=== PATIENT | female | born 1985 | race Caucasian/White ===

== ENCOUNTER 2019-05-12 22:47 | Emergency (ER) | payer BC, OTHER ==
--- NOTE | 2019-05-12 23:25 | EDM.PDOC ---
ED HPI GENERAL MEDICAL PROBLEM - General Chief Complaint: TRESTLEMAN Problem Stated Complaint: 17 WKS PREG, CONSTIPATED Time Seen by Provider: 05/12/19 22:53 - History of Present Illness INITIAL COMMENTS - FREE TEXT/NARRATIVE: HISTORY AND PHYSICAL: History of present illness: The patient is a 33-year-old female who is a one para 0 and is 17 weeks [address] Last and presents with complaints of no bowel movement for the last 3 days. She says that she has had issues on and off with constipation her whole life and she usually takes aloe and that works but since she's been she has noticed that she has had more issues with constipation and tonight when she was unable to have a bowel movement and felt a lot of pressure she took 2 Colace/ducosate and felt the urge to have a bowel movement and sat on the toilet for long period of time and was unable to have a bowel movement. She says that she is having a little bit of discomfort in her anal area as a result of pushing. She has no abdominal pain no nausea no vomiting no flank pain no urinary complaints and she's had no vaginal bleeding or discharge. She has not felt the baby move yet and her otherwise has been uneventful. She does say that she has tries to eat foods with fiber and push hydration due to her history. She currently feels like the stool is stuck in her rectum and she feels a lot of pressure there. Review of systems: As per history of present illness and below otherwise all systems reviewed and negative. Past medical history: As per history of present illness and as reviewed below otherwise noncontributory. Surgical history: As per history of present illness and as reviewed below otherwise noncontributory. Social history: No reported history of drug or alcohol abuse. Family history: As per history of present illness and as reviewed below otherwise noncontributory. Physical exam: General: Well-developed well-nourished female who is nontoxic and moves easily in the ED without distress. Vital signs are noted by me HEENT: Atraumatic, normocephalic, negative for conjunctival pallor or scleral icterus, mucous membranes moist, throat clear, neck supple, nontender, trachea midline. Lungs: Clear to auscultation, breath sounds equal bilaterally, chest nontender. Heart: S1S2, regular rate and rhythm no overt murmurs Abdomen: Soft, nondistended, nontender. Bowel sounds are hypoactive. Uterus is gravid and appreciated just below the umbilicus and nontender. Negative for masses or hepatosplenomegaly. Negative for costovertebral tenderness. Pelvis: Stable nontender. Genitourinary: Deferred. Rectal: There is some erythema and some slight induration seen at the right lateral aspect of the anus but no gross lesions or soft tissue swelling. Tone and squeeze are normal. There is hard stool appreciated high in the vault. Extremities: Atraumatic, negative for cords or calf pain. Neurovascular unremarkable. Neuro: Awake, alert, oriented. Cranial nerves II through XII unremarkable. Cerebellum unremarkable. Motor and sensory unremarkable throughout. Exam nonfocal. Diagnostics: UA with reflex was ordered but patient did not produce a sample so I will cancel heart tones were 142 per nursing Therapeutics: Enema After my exam I did tell the patient that the stool is very hard and high in the vault and that we can try an enema but it may or may not be successful. She would like to go ahead and try this and if it does not produce decent stool output she will be open to taking something from above to stimulate bowel movement. Patient said that she passed a decent amount of stool here and would like to go home. Impression: Constipation, history of same, second trimester stable Definitive disposition and diagnosis as appropriate pending reevaluation and review of above. rectal pain Pain Score (Numeric/FACES): 5 - Related Data Allergies Allergy/AdvReac Type Severity Reaction Status Date / Time No Known Allergies Allergy Verified 05/12/19 23:02 Home Meds: Home Meds Aspirin [Ecotrin EC] 81 mg PO DAILY 05/12/19 [History] Docusate Calcium 240 mg PO ASDIRECTED PRN 05/12/19 [History] [id number]/Iron Fumarate/FA/DSS [ 19 Tablet] 1 tab PO DAILY 05/12/19 [ History] Past Medical History Gastrointestinal History: Reports: Irritable Bowel Syndrome - Infectious Disease History Infectious Disease History: Reports: Chicken Pox Social & Family History - Family History Family Medical History: Noncontributory - Tobacco Use Smoking Status *Q: Never Smoker Second Hand Smoke Exposure: No - Caffeine Use Caffeine Use: Reports: None - Recreational Drug Use Recreational Drug Use: No ED ROS GENERAL - Review of Systems Review Of Systems: ROS reveals no pertinent complaints other than HPI. ED EXAM, GENERAL - Physical Exam Exam: See Below (See dictation) Course - Vital Signs Last Recorded V/S: Last Vital Signs Temp 35.7 C 05/12/19 22:57 Pulse 91 05/12/19 22:57 Resp 17 05/12/19 22:57 BP 117/78 05/12/19 22:57 Pulse Ox 98 05/12/19 22:57 - Orders/Labs/Meds Orders: Active Orders 24 hr Category Date Time Status Communication Order [RC] STAT Care 05/12/19 22:50 Active Enema [RC] ASDIRECTED Care 05/12/19 23:18 Active UA RFX FERNANDO AND CULT IF INDIC [URIN] Stat Lab 05/12/19 22:50 Stop Req Departure - Departure Time of Disposition: 00:00 Disposition: Home, Self-Care 01 Condition: Good Clinical Impression: Second trimester Constipation Qualifiers: Constipation type: unspecified constipation type Qualified Code(s): K59.00 - Constipation, unspecified - Discharge Information Referrals: PCP,None [Primary Care Provider] - Forms: ED Department Discharge Additional Instructions: The following information is given to patients seen in the emergency department who are being discharged to home. This information is to outline your options for follow-up care. We provide all patients seen in our emergency department with a follow-up referral. The need for follow-up, as well as the timing and circumstances, are variable depending upon the specifics of your emergency department visit. If you don't have a primary care physician on staff, we will provide you with a referral. We always advise you to contact your personal physician following an emergency department visit to inform them of the circumstance of the visit and for follow-up with them and/or the need for any referrals to a consulting specialist. The emergency department will also refer you to a specialist when appropriate. This referral assures that you have the opportunity for followup care with a specialist. All of these measure are taken in an effort to provide you with optimal care, which includes your followup. Under all circumstances we always encourage you to contact your private physician who remains a resource for coordinating your care. When calling for followup care, please make the office aware that this follow-up is from your recent emergency room visit. If for any reason you are refused follow-up, please contact the [facility] emergency department at and ask to speak to the emergency department charge nurse. [place] [id number] [place] [address] [phone] Increase fiber and fluids in your diet and avoid caffeinated products. Please discuss with your OB M.D. taking Colace on a daily basis to keep your stools softer. You may also consider a probiotic [id number]. Return to ER as needed and as discussed - My Orders Last 24 Hours: My Active Orders 05/12/19 22:50 Communication Order [RC] STAT UA RFX FERNANDO AND CULT IF INDIC [URIN] Stat 05/12/19 23:18 Enema [RC] ASDIRECTED - Assessment/Plan Last 24 Hours: My Active Orders 05/12/19 22:50 Communication Order [RC] STAT UA RFX FERNANDO AND CULT IF INDIC [URIN] Stat 05/12/19 23:18 Enema [RC] ASDIRECTED
== END 2019-05-13 00:10 | disposition home or self-care (01) ==
LOC: MW.ED 22:47
DX: O99.612 Diseases of the digestive system complicating pregnancy, second trimester (principal); K59.00 Constipation, unspecified; Z3A.17 17 weeks gestation of pregnancy; Z79.82 Long term (current) use of aspirin
CPT/HCPCS: 99283

== ENCOUNTER 2019-10-29 12:40 | Inpatient (IN) | payer BC ==
[2019-10-29] MEDS ORDERED: Sodium Chloride 0.9% 2.5 ML Syringe FLUSH PRN (20:20)
[2019-10-29] MEDS ORDERED: Water For Irrigation,Sterile 1,000 ML Container IRR PRN (20:20)
[2019-10-29] MEDS ORDERED: Sodium Chloride 0.9% 10 ML Syringe FLUSH PRN (20:20)
[2019-10-29] MEDS ORDERED: Methylergonovine 0.2 MG/1 ML Amp IM PRN (20:20)
[2019-10-29] MEDS ORDERED: Misoprostol 200 MCG Tab PO PRN (20:20)
[2019-10-29] MEDS ORDERED: Carboprost Tromethamine 250 MCG/1 ML Amp IM PRN (20:20)
[2019-10-29] MEDS ORDERED: Nalbuphine 10 MG/1 ML Vial IVPUSH PRN (20:20)
[2019-10-29] MEDS ORDERED: Sodium Chloride 0.9% 10 ML SDV IV PRN (20:20)
[2019-10-29] MEDS ORDERED: Lidocaine 1% 50 ML MDV INJECT PRN (20:20)
[2019-10-29] MEDS ORDERED: Misoprostol 25 MCG (1/4 of 100 MCG) Tab VAG PRN (20:20)
[2019-10-29] MEDS ORDERED: Terbutaline 1 MG/ML SDV SUBCUT PRN (20:20)
[2019-10-29] MEDS ORDERED: Butorphanol 1 MG/ML SDV IVPUSH PRN (20:20)
[2019-10-29] MEDS ORDERED: Tranexamic Acid 1,000 MG in Sodium Chloride 0.9% 100 ML IV PRN (20:20)
[2019-10-29] MEDS ORDERED: Oxytocin/0.9 % Sodium Chloride 30 UNIT/500 ML BAG IV SCH ×2 (20:30)
[2019-10-30] MEDS ORDERED: fentaNYL 100 MCG/2 ML SDV ONE (04:54)
[2019-10-30] MEDS ORDERED: Ropivacaine HCl/PF 100 ML ONE (04:54)
[2019-10-30] MEDS: Lactated Ringers 1,000 ML IV SCH ×2 (05:20)
--- NOTE | 2019-10-30 05:43 | PCM.PREANE ---
Preanesthetic Assessment - Anesthesia/Transfusion/Family Hx Anesthesia History: Prior Anesthesia Without Reaction Transfusion History: No Prior Transfusion(s) - Physical Assessment NPO Status Date: 10/30/19 NPO Status Time: 00:05 Height: 1.63 m Weight: 96.162 kg ASA Class: 1 - Lab Values: Laboratory Last Values WBC 13.14 K/uL (4.0-11.0) H 10/29/19 21:30 RBC 4.08 M/uL (4.30-5.90) L 10/29/19 21:30 Hgb 12.5 g/dL (12.0-16.0) 10/29/19 21:30 Hct 37.4 % (36.0-46.0) 10/29/19 21:30 MCV 91.7 fL (80.0-98.0) 10/29/19 21:30 MCH 30.6 pg (27.0-32.0) 10/29/19 21: MCHC 33.4 g/dL (31.0-37.0) 10/29/19 21:30 RDW Std Deviation 48.6 fl (28.0-62.0) 10/29/19 21:30 RDW Coeff of Latanya 14 % (11.0-15.0) 10/29/19 21:30 Plt Count 229 K/uL (150-400) 10/29/19 21:30 MPV 11.70 fL (7.40-12.00) 10/29/19 21:30 Nucleated RBC % 0.0 /100WBC 10/29/19 21:30 Nucleated RBCs # 0 K/uL 10/29/19 21:30 Blood Type A POSITIVE 10/29/19 21:30 Antibody Screen NEGATIVE 10/29/19 21:30 - Allergies Allergies/Adverse Reactions: Allergies Allergy/AdvReac Type Severity Reaction Status Date / Time No Known Allergies Allergy Verified 05/12/19 23:02 - Acknowledgements Anesthesia Type Planned: Epidural Pt an Appropriate Candidate for the Planned Anesthesia: Yes Alternatives and Risks of Anesthesia Discussed w Pt/Guardian: Yes Pt/Guardian Understands and Agrees with Anesthesia Plan: Yes PreAnesthesia Questionnaire HEENT History: Reports: Impaired Vision Gastrointestinal History: Reports: Irritable Bowel Syndrome - Infectious Disease History Infectious Disease History: Reports: Chicken Pox - Past Surgical History HEENT Surgical History: Reports: Oral Surgery - SUBSTANCE USE Smoking Status *Q: Never Smoker Tobacco Use Within Last Twelve Months: No Second Hand Smoke Exposure: No - HOME MEDS Home Medications: Home Meds Aspirin [Ecotrin EC] 81 mg PO DAILY 05/12/19 [History] Docusate Calcium 240 mg PO ASDIRECTED PRN 05/12/19 [History] Prenat 115/Iron Fum/Folic/Dss [ 19 Tablet] 1 tab PO DAILY 05/12/19 [ History] - CURRENT (IN HOUSE) MEDS Current Meds: Current Medications Butorphanol Tartrate (Stadol) 1 mg IVPUSH Q1H PRN PRN Reason: Pain Carboprost Tromethamine (Hemabate Ds) 250 mcg IM ASDIRECTED PRN PRN Reason: Post Hemorrhage Lactated Ringer's (Ringers, Lactated) 1,000 mls @ 150 mls/hr IV ASDIRECTED PAPA Last Admin: 10/30/19 05:20 Dose: 150 mls/hr Oxytocin/Sodium Chloride (Oxytocin 30 Unit/500 Ml-Ns) 30 unit in 500 mls @ 250 mls/hr IV TITRATE PAPA Oxytocin/Sodium Chloride (Oxytocin 30 Unit/500 Ml-Ns) 30 unit in 500 mls @ 2 mls/hr IV TITRATE PAPA; Protocol Tranexamic Acid 1,000 mg/ (Sodium Chloride) 110 mls @ 660 mls/hr IV ONETIME PRN PRN Reason: Bleeding Lidocaine HCl (Xylocaine 1%) 50 ml INJECT ONETIME PRN PRN Reason: Laceration repair Methylergonovine Maleate (Methergine) 0.2 mg IM ASDIRECTED PRN PRN Reason: Post Hemorrhage Misoprostol (Cytotec) 200 mcg PO ONETIME PRN PRN Reason: Post Hemorrhage Misoprostol (Cytotec) 25 mcg VAG Q4H PRN PRN Reason: Cervical Ripening Last Admin: 10/29/19 21:41 Dose: 25 mcg Nalbuphine HCl (Nubain) 10 mg IVPUSH Q1H PRN PRN Reason: Pain (severe 7-10) Sodium Chloride (Saline Flush) 10 ml FLUSH ASDIRECTED PRN PRN Reason: Keep Vein Open Sodium Chloride (Saline Flush) 2.5 ml FLUSH ASDIRECTED PRN PRN Reason: Keep Vein Open Sodium Chloride (Normal Saline) 10 ml IV ASDIRECTED PRN PRN Reason: IV Use Sterile Water (Sterile Water For Irrigation) 1,000 ml IRR ASDIRECTED PRN PRN Reason: delivery Terbutaline Sulfate (Brethine) 0.25 mg SUBCUT ASDIRECTED PRN PRN Reason: Tacysystole Last Admin: 10/30/19 04:40 Dose: 0.25 mg Discontinued Medications Fentanyl (Sublimaze) Confirm Administered Dose 100 mcg .ROUTE .STK-MED ONE Stop: 10/30/19 04:55 Ropivacaine (Naropin 0.2%) Confirm Administered Dose 100 mls @ as directed .ROUTE .STK-MED ONE Stop: 10/30/19 04:55
--- NOTE | 2019-10-30 05:47 | PCM.PRNOTE ---
- Free Text/Narrative Note: Anes NOte Patient requests epidural for L&D. Sitting position, level L3-L4 midline approach. Sterile technique, chloraprep scrub to lumbar area. Sterile fenestrated drape applied. Epidural space achieved second attempt using SAEID technique. SAEID at 4 cm. Cath threaded 5 cm with ease. Cath secured at skin at 11 cm using sterile clear adhesive dressing. 0457 test 3 cc 1.5% lido with epi negative. 0500 Load 10 cc 0.2% ropivicaine with 1 mcg cc fentanyl in slow divided doses. 0505 PUmps start wtih 90 cc same solution. Rate is 8 cc hr with 6 cc q 20 min prn bolus. 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
[2019-10-30] MEDS ORDERED: Acetaminophen 500 MG Tab PO PRN ×2 (13:36)
[2019-10-30] MEDS ORDERED: Bisacodyl 10 MG Supp RECTAL PRN (13:36)
[2019-10-30] MEDS ORDERED: Lanolin 100% Cream 7 GM Tube TOP PRN (13:36)
[2019-10-30] MEDS ORDERED: Witch Hazel Medicated Pads 40/Jar TOP PRN (13:36)
[2019-10-30] MEDS ORDERED: oxyCODONE 5 MG Tab PO PRN (13:36)
[2019-10-30] MEDS ORDERED: Ibuprofen 400 MG Tab PO PRN (13:36)
[2019-10-30] MEDS ORDERED: Ibuprofen 800 MG Tab PO PRN (13:36)
[2019-10-30] MEDS: Benzocaine/Menthol 20%-0.5% Spray 78 GM Cannister TOP PRN (17:16)
[2019-10-30] MEDS ORDERED: Docusate Sodium 100 MG Cap PO SCH (21:00)
--- NOTE | 2019-10-30 21:19 | OR ---
SURGEON: Santos Last MD DATE OF PROCEDURE: 10/30/2019 INDICATION: A 33-year-old, G1, P0, at 41 weeks and 4 days, admitted for induction of labor for late term . The patient had uncomplicated , is GBS negative. After receiving one dose of Cytotec, she began to have tachysystole and recurrent variable and late decelerations that did not respond to repositioning. She received a dose of terbutaline, was ruptured and IUPC placed and started on amnioinfusion. The heart rate did recover to Cat 1, and she continued to progress with regular contractions. She progressed to fully dilated and began pushing with contractions. PREOPERATIVE DIAGNOSIS: Broderick intrauterine at 41 weeks and 4 days. POSTOPERATIVE DIAGNOSIS: Broderick intrauterine at 41 weeks and 4 days. PROCEDURE PERFORMED: Normal spontaneous vaginal delivery, repair of second-degree laceration. ANESTHESIA: Epidural. ESTIMATED BLOOD LOSS: 350 mL. FINDINGS Viable male infant, of 8 and 9, Weight of 9lb 1oz Tight nuchal cord x1 DESCRIPTION OF PROCEDURE: The patient pushed with contractions for approximately 25 minutes. There were early decelerations with contractions to the 90s with good recovery. The head delivered in occiput anterior position, restituted ROT. Anterior shoulder delivered easily. Tight nuchal cord was noted. The posterior shoulder and remaining body delivered easily. The nuchal cord was reduced after delivery. The baby was placed on maternal chest and evaluated by awaiting nursery staff. The baby was pink, crying, and moving all extremities after delivery. The umbilical cord was clamped and cut after 60 seconds and no longer pulsating. The umbilical cord gases were obtained. The placenta was removed with gentle traction on the umbilical cord. Placenta was found to be intact with 3-vessel cord. Perineum was examined, and she had a second degree laceration that extended deep into the vagina. 2-0 and 3-0 Vicryl suture was used to repair the second-degree laceration in usual fashion. Hemostasis was confirmed after repair. The uterus was firm and at the umbilicus. Bleeding was minimal. The patient tolerated the procedure well and was given care instructions. JAYDE / TRUDY /[id number] [facility]ITAL CENTERMica
--- NOTE | 2019-10-31 09:58 | PCM.PNPP ---
- General Info Date of Service: 10/31/19 Functional Status: Reports: Pain Controlled, Tolerating Diet, Ambulating, Urinating - Review of Systems General: Reports: No Symptoms HEENT: Reports: No Symptoms Pulmonary: Reports: No Symptoms Cardiovascular: Reports: No Symptoms Gastrointestinal: Reports: No Symptoms Genitourinary: Reports: No Symptoms Musculoskeletal: Reports: No Symptoms Skin: Reports: No Symptoms Neurological: Reports: No Symptoms Psychiatric: Reports: No Symptoms - Patient Data Vital Signs - Most Recent: Last Vital Signs Temp 36.2 C 10/31/19 08:00 Pulse 83 10/31/19 08:00 Resp 16 10/31/19 08:00 BP 117/74 10/31/19 08:00 Pulse Ox 98 10/31/19 08:00 Weight - Most Recent: 212 lb Lab Results - Last 24 Hours: Laboratory Results - last 24 hr 10/31/19 Range/Units 06:10 Hgb 11.2 L (12.0-16.0) g/dL Hct 34.1 L (36.0-46.0) % Med Orders - Current: Current Medications Acetaminophen (Tylenol Extra Strength) 500 mg PO Q4H PRN PRN Reason: Pain Acetaminophen (Tylenol Extra Strength) 1,000 mg PO Q4H PRN PRN Reason: Pain Benzocaine/Menthol (Dermoplast Pain Relief 20%-0.5% Tillar) 78 gm TOP ASDIRECTED PRN PRN Reason: Perineal Comfort Measure Last Admin: 10/30/19 17:16 Dose: 1 canister Bisacodyl (Dulcolax) 10 mg RECTAL ONETIME PRN PRN Reason: Constipation Butorphanol Tartrate (Stadol) 1 mg IVPUSH Q1H PRN PRN Reason: Pain Carboprost Tromethamine (Hemabate Ds) 250 mcg IM ASDIRECTED PRN PRN Reason: Post Hemorrhage Docusate Sodium (Colace) 100 mg PO BID [facility] Last Admin: 10/31/19 07:59 Dose: 100 mg Emollient Ointment (Lansinoh Hpa) 0 gm TOP ASDIRECTED PRN PRN Reason: Sore Nipples Last Admin: 10/31/19 07:58 Dose: 1 tube Lactated Ringer's (Ringers, Lactated) 1,000 mls @ 150 mls/hr IV ASDIRECTED [facility] Last Admin: 10/30/19 05:20 Dose: 150 mls/hr Oxytocin/Sodium Chloride (Oxytocin 30 Unit/500 Ml-Ns) 30 unit in 500 mls @ 250 mls/hr IV TITRATE PAPA Oxytocin/Sodium Chloride (Oxytocin 30 Unit/500 Ml-Ns) 30 unit in 500 mls @ 2 mls/hr IV TITRATE PAPA; Protocol Last Titration: 10/30/19 12:42 Dose: 500 munits/min, 500 mls/hr Tranexamic Acid 1,000 mg/ (Sodium Chloride) 110 mls @ 660 mls/hr IV ONETIME PRN PRN Reason: Bleeding Ibuprofen (Motrin) 400 mg PO Q4H PRN PRN Reason: Pain Ibuprofen (Motrin) 800 mg PO Q6H PRN PRN Reason: Pain Last Admin: 10/30/19 17:14 Dose: 800 mg Lidocaine HCl (Xylocaine 1%) 50 ml INJECT ONETIME PRN PRN Reason: Laceration repair Methylergonovine Maleate (Methergine) 0.2 mg IM ASDIRECTED PRN PRN Reason: Post Hemorrhage Misoprostol (Cytotec) 200 mcg PO ONETIME PRN PRN Reason: Post Hemorrhage Misoprostol (Cytotec) 25 mcg VAG Q4H PRN PRN Reason: Cervical Ripening Last Admin: 10/29/19 21:41 Dose: 25 mcg Nalbuphine HCl (Nubain) 10 mg IVPUSH Q1H PRN PRN Reason: Pain (severe 7-10) Oxycodone HCl (Oxycodone) 5 mg PO Q2H PRN PRN Reason: Pain Sodium Chloride (Saline Flush) 10 ml FLUSH ASDIRECTED PRN PRN Reason: Keep Vein Open Sodium Chloride (Saline Flush) 2.5 ml FLUSH ASDIRECTED PRN PRN Reason: Keep Vein Open Sodium Chloride (Normal Saline) 10 ml IV ASDIRECTED PRN PRN Reason: IV Use Sterile Water (Sterile Water For Irrigation) 1,000 ml IRR ASDIRECTED PRN PRN Reason: delivery Terbutaline Sulfate (Brethine) 0.25 mg SUBCUT ASDIRECTED PRN PRN Reason: Tacysystole Last Admin: 10/30/19 04:40 Dose: 0.25 mg Witch Martha (Tucks) 1 pad TOP ASDIRECTED PRN PRN Reason: comfort care Last Admin: 10/30/19 17:16 Dose: 1 container Discontinued Medications Fentanyl (Sublimaze) Confirm Administered Dose 100 mcg .ROUTE .STK-MED ONE Stop: 10/30/19 04:55 Ropivacaine (Naropin 0.2%) Confirm Administered Dose 100 mls @ as directed .ROUTE .STK-MED ONE Stop: 10/30/19 04:55 - Infant Interaction Infant Disposition, : Harper in Room with Family Interaction: Holding Infant Feeding: Breastfed ; Nursed Well Support Person: - Recovery Exam Fundal Tone: Firm Fundal Level: At Umbilicus Fundal Placement: Midline Lochia Amount: Scant Lochia Color: Rubra/Red Perineum Description: Edematous Bladder Status: Voiding - Exam General: Alert, Oriented, Cooperative, Sedated HEENT: Pupils Equal, Pupils Reactive Neck: Supple, Trachea Midline, No JVD Lungs: Normal Respiratory Effort GI/Abdominal Exam: Soft, Non-Tender, No Distention Extremities: Normal Inspection, Normal Range of Motion, Non-Tender, No Pedal Edema Skin: Warm, Dry, Intact Wound/Incisions: Healing Well Neurological: No New Focal Deficit Psy/Mental Status: Alert, Normal Affect, Normal Mood - Problem List Review Problem List Initiated/Reviewed/Updated: Yes - My Orders Last 24 Hours: My Active Orders 10/30/19 13:36 Patient Status [ADT] Routine May Shower [RC] ASDIRECTED Up ad Zehra [RC] ASDIRECTED Acetaminophen [Tylenol Extra Strength] 1,000 mg PO Q4H PRN Acetaminophen [Tylenol Extra Strength] 500 mg PO Q4H PRN Benzocaine/Menthol [Dermoplast Pain Relief 20%-0.5% Tillar] 78 gm TOP ASDIRECTED PRN Ibuprofen [Motrin] 400 mg PO Q4H PRN Ibuprofen [Motrin] 800 mg PO Q6H PRN Lanolin [Lansinoh HPA] See Dose Instructions TOP ASDIRECTED PRN bisacodyL [Dulcolax] 10 mg RECTAL ONETIME PRN oxyCODONE 5 mg PO Q2H PRN witch Martha [Tucks] 1 pad TOP ASDIRECTED PRN Assess Lochia [WOMSER] Per Unit Routine Assess Uterine Involution [WOMSER] Per Unit Routine Breast Pump [WOMSER] Per Unit Routine Peripheral IV Discontinue [OM.PC] Routine 10/30/19 13:37 Ice Therapy [OM.PC] Per Unit Routine Perineal Care [OM.PC] Per Unit Routine Sitz Bath [OM.PC] Per Unit Routine 10/30/19 21:00 Docusate Sodium [Colace] 100 mg PO BID 10/30/19 Dinner Regular Diet [DIET] 10/31/19 09:53 Ready for Discharge [RC] PER UNIT ROUTINE - Assessment Assessment:: 33yo PPD1 s/p , stable and recovering well. - Plan Plan:: vitals stable Hgb 11.2, bleeding light, denies s/s of anemia tolerating PO and ambulating continue stool softener Stable for discharge home, given care instructions
--- NOTE | 2019-10-31 12:42 | PCM48HPAN ---
Post Anesthesia Note - EVALUATION WITHIN 48HRS OF ANESTHETIC Vital Signs in Normal Range: Yes Patient Participated in Evaluation: Yes Respiratory Function Stable: Yes Airway Patent: Yes Cardiovascular Function Stable: Yes Hydration Status Stable: Yes Pain Control Satisfactory: Yes Nausea and Vomiting Control Satisfactory: Yes Mental Status Recovered: Yes Vital Signs: Last Vital Signs Temp 36.2 C 10/31/19 08:00 Pulse 83 10/31/19 08:00 Resp 16 10/31/19 08:00 BP 117/74 10/31/19 08:00 Pulse Ox 98 10/31/19 08:00
[2019-10-31] MEDS: Benzocaine/Menthol 20%-0.5% Spray 78 GM Cannister TOP PRN (14:43)
== END 2019-10-31 15:07 | disposition home or self-care (01) | DRG 560 ==
LOC: MW.OB 12:40 → OBSVTOIN 10-30 12:40 → MW.OB 10-30 17:30
PROVIDERS: ADMIT Obstetrics & Gynecology; ATTEND Obstetrics & Gynecology
PROC: 10E0XZZ Delivery of Products of Conception, External Approach (ICD-10-PCS; principal; 2019-10-30)
PROC: 10907ZC Drainage of Amniotic Fluid, Therapeutic from Products of Conception, Via Natural or Artificial Opening (ICD-10-PCS; 2019-10-30)
PROC: 0KQM0ZZ Repair Perineum Muscle, Open Approach (ICD-10-PCS; 2019-10-30)
PROC: 10H07YZ Insertion of Other Device into Products of Conception, Via Natural or Artificial Opening (ICD-10-PCS; 2019-10-30)
PROC: 3E0R3BZ Introduction of Anesthetic Agent into Spinal Canal, Percutaneous Approach (ICD-10-PCS; 2019-10-30)
PROC: 00HU33Z Insertion of Infusion Device into Spinal Canal, Percutaneous Approach (ICD-10-PCS; 2019-10-30)
DX: O48.0 Post-term pregnancy (principal); Z37.0 Single live birth; Z3A.41 41 weeks gestation of pregnancy; O76 Abnormality in fetal heart rate and rhythm complicating labor and delivery; O70.1 Second degree perineal laceration during delivery; O69.1XX0 Labor and delivery complicated by cord around neck, with compression, not applicable or unspecified
CPT/HCPCS: 36415; 51702; 59025; 59409; 85014; 85018; 85027; 86592; 86850; 86900; 86901; A9270-GY; J2590; J3105; J7120

== ENCOUNTER 2021-08-15 21:13 | Inpatient (IN) | payer BC ==
[2021-08-15] MEDS ORDERED: Methylergonovine 0.2 MG/1 ML Amp IM PRN (22:04)
[2021-08-15] MEDS ORDERED: Sodium Chloride 0.9% 20 ML SDV IV PRN (22:04)
[2021-08-15] MEDS ORDERED: Sodium Chloride 0.9% 2.5 ML Syringe FLUSH PRN (22:04)
[2021-08-15] MEDS ORDERED: Tranexamic Acid 1,000 MG in Sodium Chloride 0.9% 100 ML IV PRN (22:04)
[2021-08-15] MEDS ORDERED: Sodium Chloride 0.9% 10 ML Syringe FLUSH PRN (22:04)
[2021-08-15] MEDS ORDERED: Lidocaine 1% 50 ML MDV INJECT PRN (22:04)
[2021-08-15] MEDS ORDERED: Carboprost Tromethamine 250 MCG/1 ML Amp IM PRN (22:04)
[2021-08-15] MEDS ORDERED: Misoprostol 200 MCG Tab PO PRN (22:04)
[2021-08-15] MEDS ORDERED: Butorphanol 1 MG/ML SDV IVPUSH PRN (22:04)
[2021-08-15] MEDS ORDERED: Water For Irrigation,Sterile 1,000 ML Container IRR PRN (22:04)
[2021-08-15] MEDS ORDERED: Nalbuphine 10 MG/1 ML Vial IVPUSH PRN (22:04)
[2021-08-15] MEDS ORDERED: fentaNYL 100 MCG/2 ML SDV ONE (22:14)
[2021-08-15] MEDS ORDERED: Bupivacaine 0.25% 10 ML SDV ONE (22:14)
[2021-08-15] MEDS ORDERED: Lactated Ringers 1,000 ML IV SCH (22:15)
[2021-08-15] MEDS ORDERED: Oxytocin/0.9 % Sodium Chloride 30 UNIT/500 ML BAG IV SCH (22:15)
[2021-08-15] MEDS ORDERED: ePHEDrine 50 MG/ML SDV IVPUSH PRN ×2 (22:26)
[2021-08-15] MEDS ORDERED: Ropivacaine HCl/PF 200 MG in Premix Bag 1 BAG EPIDUR SCH (22:30)
[2021-08-15] MEDS ORDERED: Aluminum Hydroxide/Magnesium Hydroxide/Simethicone XS Susp 30 ML Cup PO PRN (23:01)
[2021-08-15] MEDS ORDERED: Bisacodyl 10 MG Supp RECTAL PRN (23:01)
[2021-08-15] MEDS ORDERED: Ibuprofen 400 MG Tab PO PRN (23:01)
[2021-08-15] MEDS ORDERED: Acetaminophen 500 MG Tab PO PRN ×2 (23:01)
[2021-08-15] MEDS ORDERED: Ibuprofen 800 MG Tab PO PRN (23:01)
[2021-08-15] MEDS ORDERED: Witch Hazel Medicated Pads 40/Jar TOP PRN (23:01)
[2021-08-15] MEDS ORDERED: Benzocaine/Menthol 20%-0.5% Spray 78 GM Cannister TOP PRN (23:01)
[2021-08-15] MEDS ORDERED: oxyCODONE 5 MG Tab PO PRN (23:01)
[2021-08-15] MEDS ORDERED: Docusate Sodium 100 MG Cap PO PRN (23:01)
[2021-08-15] MEDS ORDERED: Lanolin 100% Cream 7 GM Tube TOP PRN (23:01)
== END 2021-08-17 12:42 | disposition home or self-care (01) | DRG 560 ==
LOC: MW.OBCHECK 21:13 → MW.OB 21:13 → MW.OBCHECK 22:14 → MW.OB 22:14 → OBSVTOIN 22:45 → MW.OB 08-16 01:31
PROVIDERS: ADMIT Obstetrics & Gynecology; ATTEND Obstetrics & Gynecology
PROC: 10E0XZZ Delivery of Products of Conception, External Approach (ICD-10-PCS; principal; 2021-08-15)
PROC: 0KQM0ZZ Repair Perineum Muscle, Open Approach (ICD-10-PCS; 2021-08-15)
PROC: 00HU33Z Insertion of Infusion Device into Spinal Canal, Percutaneous Approach (ICD-10-PCS; 2021-08-15)
PROC: 3E0R3BZ Introduction of Anesthetic Agent into Spinal Canal, Percutaneous Approach (ICD-10-PCS; 2021-08-15)
DX: O48.0 Post-term pregnancy (principal); Z3A.40 40 weeks gestation of pregnancy; Z37.0 Single live birth; O70.1 Second degree perineal laceration during delivery; Z20.822 Contact with and (suspected) exposure to COVID-19
CPT/HCPCS: 36415; 59025; 59409; 82803; 85014; 85018; 85027; 86592; 86850; 86900; 86901; A9270-GY; J3010; J3490; J7120; U0002

== ENCOUNTER 2023-02-24 12:11 | Emergency (ER) | payer BC ==
[2023-02-24] MEDS ORDERED: Sodium Chloride 0.9% 10 ML Syringe FLUSH PRN (12:30)
[2023-02-24] MEDS ORDERED: Sodium Chloride 0.9% 2.5 ML Syringe FLUSH PRN (12:30)
[2023-02-24] MEDS ORDERED: Dicyclomine 10 MG Cap PO ONE (12:31)
[2023-02-24] MEDS ORDERED: Famotidine 20 MG/2 ML SDV IVPUSH ONE (12:31)
[2023-02-24] MEDS ORDERED: Ondansetron 4 MG/2 ML SDV IVPUSH ONE (12:31)
[2023-02-24] MEDS: Sodium Chloride 0.9% 1,000 ML IV ONE ×2 (12:48→12:52)
[2023-02-24 12:52] LABS: BASOPHILS PERCENT AUTO 0.1 % (0.0-1.5); EOSINOPHILS ABSOLUTE AUTO 0.1 K/uL (0.0-0.7); EOSINOPHILS PERCENT AUTO 0.6 % (0.0-7.0); HEMATOCRIT 40.6 % (36.0-46.0); HEMOGLOBIN 13.4 g/dL (12.0-16.0); LYMPHOCYTES ABSOLUTE AUTO 2.1 K/uL (0.6-2.4); LYMPHOCYTES PERCENT AUTO 21.6 % (16.0-40.0); MEAN CORPUSCULAR HEMOGLOBIN 29.8 pg (27.0-32.0); MEAN CORPUSCULAR VOLUME 90.4 fL (80.0-98.0); MONOCYTES ABSOLUTE AUTO 0.5 K/uL (0.0-0.8); MONOCYTES PERCENT AUTO 5.6 % (0.0-15.0); NEUTROPHILS PERCENT AUTO 72.1 % (48.0-80.0); NRBC ABSOLUTE 0 K/uL; PLATELET COUNT,PLT 277 K/uL (150-400); RED BLOOD CELL COUNT 4.49 M/uL (4.30-5.90); WHITE BLOOD CELL COUNT,WBC 9.68 K/uL (4.0-11.0)
[2023-02-24 13:23] LABS: A/G RATIO 0.8 (0.9-1.6); ALBUMIN 3.3 g/dL (3.4-5.0); BILIRUBIN TOTAL 0.3 mg/dL (0.2-1.0); CALCIUM 8.7 mg/dL (8.5-10.1); CARBON DIOXIDE,CO2 26.7 mmol/L (21.0-32.0); CREATININE 0.8 mg/dL (0.6-1.0); EST CRCL DRUG DOSING (CG) 83.95 mL/min; POTASSIUM,K 3.9 mmol/L (3.5-5.1); PROTEIN TOTAL,TP 7.6 g/dL (6.4-8.2)
[2023-02-24] MEDS ORDERED: Sucralfate 1 GM Tab PO ONE (13:59)
== END 2023-02-24 15:43 | disposition home or self-care (01) ==
LOC: MW.ED 12:11
DX: R10.11 Right upper quadrant pain (principal); R11.2 Nausea with vomiting, unspecified; R19.7 Diarrhea, unspecified; Z79.899 Other long term (current) drug therapy
CPT/HCPCS: 36415; 76705; 80053; 83690; 84703; 85025; 96374; 96375; 99284; A9270; J2405; J3490; J7030